=== PATIENT | female | born 1945 | race Caucasian/White ===

== ENCOUNTER → 2018-06-04 | Outpatient (CLI) | payer BC, MEDICARE | END | disposition home or self-care (01) | LOC: ECHO 08:38 | DX: I48.0 Paroxysmal atrial fibrillation (principal) | CPT/HCPCS: 93306 ==

== ENCOUNTER → 2021-12-15 | Day surgery (SDC) | payer MEDICARE, BC ==
[~2021-12-15] VITALS: Ht 162.6 cm; Wt 100.4 kg
[~2021-12-15] MED LIST: APIX2.5T PO; IV RINGERS,LACTATED 1000ML 1,000 ML IV SCH; PROPOFOL 10 MG/ML (20ML) VIAL. IV ONE
[2021-12-15 08:05] VITALS: BP 224/69
[2021-12-15 09:38] VITALS: BP 204/92
--- NOTE | 2021-12-18 15:07 | PATHOLOGY ---
[facility] Accession Number: [id number] . 01 Material submitted: . sigmoid colon - SIGMOID ULCER BIOPSY . 01 Clinical history: . +COLOGUARD, COLONOSCOPY . 02 Diagnosis: Colonic mucosa, sigmoid ulcer biopsies: - Adenocarcinoma, moderately differentiated, ulcerated. See comment. ([facility]; 12/18/2021) [facility] 12/18/2021 0915 Local . 02 Comment: Sections of the sigmoid ulcer biopsy reveal a malignant epithelial neoplasm, in addition to several segments of colonic mucosa. Multiple biopsy segments reveal malignant glands which irregularly infiltrate an inflamed reactive desmoplastic stroma. Malignant glands focally have a gland within gland cribriform arrangement. Malignant glands focally undermine overlying inflamed colonic mucosa. There are segments of acute inflammatory exudate consistent with ulcer. The morphologic findings are supportive of a diagnosis of moderately differentiated colorectal adenocarcinoma. The case is also examined by Dr. Michael Garcia, who concurs with the diagnosis. The results are telephoned to Dr. Sanchez on 12/18/21 at 1:19 PM. ([facility]; 12/18/2021) . 02 Electronically signed: . John Easton MD, Pathologist NPI- [id number] . 01 Gross description: . The specimen is received in formalin, labeled "Inocencio, Milmay, sigmoid ulcer BX". Received are multiple segments of white-beth tissue measuring 1.3 x 0.7 x 0.1 cm in aggregate dimensions. The specimen is filtered and entirely submitted in cassette A1. ([facility]; 12/15/2021) N[facility]/NRI 12/15/2021 1601 Local . 02 Pathologist provided ICD-10: C18.7 . 02 CPT . 680509 Specimen Comment: A courtesy copy of this report has been sent to [phone] Specimen Comment: Report sent to Specimen Comment: A duplicate report has been generated due to demographic updates. Performed at: 01 [facility] [address] [facility] [address], [place] [id number] MD Boogie Zamora MD Phone: [phone] Performed at: 02 [facility] [address], [place] [id number] MD John Easton MD Phone: [phone]
== END | disposition home or self-care (01) ==
LOC: ENDOS 07:44
PROVIDERS: ATTEND Internal Medicine Gastroenterology
DX: R19.5 Other fecal abnormalities (principal); C18.7 Malignant neoplasm of sigmoid colon; K57.30 Diverticulosis of large intestine without perforation or abscess without bleeding; K64.0 First degree hemorrhoids; K63.89 Other specified diseases of intestine; I12.9 Hypertensive chronic kidney disease with stage 1 through stage 4 chronic kidney disease, or unspecified chronic kidney disease; E11.22 Type 2 diabetes mellitus with diabetic chronic kidney disease; N18.9 Chronic kidney disease, unspecified; I48.91 Unspecified atrial fibrillation; Z90.710 Acquired absence of both cervix and uterus; Z98.890 Other specified postprocedural states; Z79.899 Other long term (current) drug therapy; Z88.0 Allergy status to penicillin; Z88.8 Allergy status to other drugs, medicaments and biological substances
CPT/HCPCS: 45380; 45381; C1713; J2704

== ENCOUNTER → 2022-01-19 | Outpatient (CLI) | payer MEDICARE, BC ==
[2021-12-15 09:38] VITALS: BP 204/92
[~2022-01-19] MED LIST changes: -IV RINGERS,LACTATED 1000ML 1,000 ML IV SCH; -PROPOFOL 10 MG/ML (20ML) VIAL. IV ONE
--- NOTE | 2022-01-19 11:07 | CARD ---
MR#: [id number] Date of Study: 01/19/2022 Ordering Physician: JERI GILES, Referring Physician: JERI GILES, Tech: Elroy Pena [facility] APPROVED REPORT EXAM: Two-dimensional and M-mode echocardiogram with Doppler and color Doppler. Other Information Quality : FairHR: 55bpm Rhythm : NSRTechnically limited study due to body habitus. INDICATION Atrial Fibrillation RISK FACTORS Hypertension Obesity Hyperlipidemia 2D DIMENSIONS Left Atrium(2D)3.9 (1.6-4.0cm)IVSd1.1 (0.7-1.1cm) Aortic Root(2D)2.8 (2.0-3.7cm)LVDd4.2 (3.9-5.9cm) LVOT Diameter2.0 (1.8-2.4cm)PWd1.1 (0.7-1.1cm) LA Gbqyqz51 (18-58mL)LVDs2.5 (2.5-4.0cm) FS (%) 40.5 %SV57.8 ml LVEF(%)71.6 (>50%) Aortic Valve AoV Peak Otilio.127.7cm/sAoV VTI33.6cm AO Peak GR.6.5mmHgLVOT Peak Otilio.89.7cm/s LVOT VTI 25.43cmAO Mean GR.4mmHg RAUL (VMAX)1.77hf9SPO (VTI)2.40cm2 Mitral Valve MV E Lsxmgnhi53.4cm/sMV DECEL [id number] MV A Cpzqihig25.8cm/sMV CVL18ro E/A Ratio1.4MVA (PHT)3.70cm2 TDI E/Lateral E'12.3E/Medial E'15.4 Pulmonary Valve PV Peak Cxcydscr422.7cm/sPV Peak Grad.5mmHg Tricuspid Valve TR P. Sbqxvehz973qe/sTR Peak Gr.26mmHg Pulmonary Vein S1 Lguyvdys01.1cm/sD2 Cabvzppi93.9cm/s LEFT VENTRICLE The left ventricle is normal size. There is normal left ventricular wall thickness. The left ventricu lar systolic function is normal. The ejection fraction is estimated at 55-60%. There is normal LV seg mental wall motion. No left ventricle thrombus noted on this study. There is no ventricular septal de fect visualized. There is no left ventricular aneurysm. There is no mass noted in the left ventricle. RIGHT VENTRICLE The right ventricle is normal size. There is normal right ventricular wall thickness. The right ventr icular systolic function is normal. ATRIA The left atrium size is normal. The right atrium size is normal. The interatrial septum is intact wit h no evidence for an atrial septal defect or patent foramen ovale as noted on 2-D or Doppler imaging. AORTIC VALVE The aortic valve is not well seen. Doppler and Color Flow revealed no significant aortic regurgitatio n. There is no significant aortic valvular stenosis. There is no aortic valvular vegetation. MITRAL VALVE The mitral valve is normal in structure and function. There is no evidence of mitral valve prolapse. There is no mitral valve stenosis. Doppler and Color-flow revealed trace mitral regurgitation. TRICUSPID VALVE The tricuspid valve is normal in structure and function. Doppler and Color Flow revealed trace tricus pid regurgitation. The PA pressure was estimated at 34 mmHg. There is no tricuspid valve prolapse or vegetation. There is no tricuspid valve stenosis. PULMONIC VALVE The pulmonic valve is not well seen. Doppler and Color Flow revealed no pulmonic valvular regurgitati on. There is no pulmonic valvular stenosis. GREAT VESSELS The aortic root is normal in size. The ascending aorta is normal in size. The pulmonary artery is nor mal. The IVC is normal in size and collapses >50% with inspiration. PERICARDIAL EFFUSION There is no pleural effusion. There is no evidence of significant pericardial effusion. Critical Notification Critical Value: No <Conclusion> The left ventricular systolic function is normal. The ejection fraction is estimated at 55-60%. There is normal LV segmental wall motion. Trace mitral regurgitation. Trace tricuspid regurgitation. The PA pressure was estimated at 34 mmHg. There is no evidence of significant pericardial effusion. Signed by : Rian Banegas, Electronically Approved : 01/19/2022 11:06:47
== END ==
LOC: ECHO 09:47
PROVIDERS: ATTEND Internal Medicine Cardiovascular Disease
DX: I48.0 Paroxysmal atrial fibrillation (principal)
CPT/HCPCS: 93306; C8929